=== PATIENT | male | born 1975 | race Hispanic/Latino ===

== ENCOUNTER 2017-06-18 21:49 | Emergency (ER) | payer MEDICAID ==
[2017-06-18 21:49] VITALS: BMI 21.5
[2017-06-18 21:59] VITALS: RESP 18
--- NOTE | 2017-06-18 22:35 | ED PDOC ---
Lower Extremity Pain/Injury Time Seen by Provider: 06/18/17 21:55 Chief Complaint (Nursing): Lower Extremity Problem/Injury Chief Complaint (Provider): Lower Extremity Problem/Injury History Per: Patient History/Exam Limitations: no limitations Onset/Duration Of Symptoms: Other (over several months) Current Symptoms Are (Timing): Still Present Additional Complaint(s): 41 y/o male presents to the ED complaining of bilateral leg swelling, worse on the right leg, going on for several months. Patient noticed redness on the right leg and has discomfort and pain. Reports that he has never seen a doctor for this. Denies fever, chills, vomiting, diarrhea or any further medical complaints. Past Medical History Reviewed: Historical Data, Nursing Documentation, Vital Signs Vital Signs: Last Vital Signs Temp 97.5 F L 06/18/17 21:56 Pulse 70 06/18/17 21:56 Resp 18 06/18/17 21:56 BP 150/90 06/18/17 21:56 Pulse Ox 100 06/18/17 21:56 - Medical History PMH: No Chronic Diseases - Surgical History Surgical History: No Surg Hx - Family History Family History: States: Unknown Family Hx - Social History Current smoker - smoking cessation education provided: Yes (Heavy Smoker > 10 Cigarettes Daily) Alcohol: None Drugs: Denies - Home Medications Home Medications: Ambulatory Orders Medication Instructions Recorded Doxycycline Hyclate 100 mg PO BID #20 cap 05/22/14 Levofloxacin [Levaquin] 500 mg PO DAILY #10 tab 05/22/14 Oxycodone HCl/Acetaminophen 1 tab PO Q6 PRN #16 tab 05/22/14 [Percocet 325 mg-5 mg] Cephalexin [Keflex] 500 mg PO QID #28 capsule 06/19/17 - Allergies Allergies/Adverse Reactions: Allergies Allergy/AdvReac Type Severity Reaction Status Date / Time No Known Allergies Allergy Verified 05/22/14 11:40 Review of Systems ROS Statement: Except As Marked, All Systems Reviewed And Found Negative (As per HPI, otherwise negative) Constitutional: Negative for: Fever, Chills Gastrointestinal: Negative for: Vomiting, Diarrhea Musculoskeletal: Positive for: Leg Pain (Bilateral leg swelling) Physical Exam - Reviewed Nursing Documentation Reviewed: Yes Vital Signs Reviewed: Yes - Physical Exam Appears: Positive for: Non-toxic, No Acute Distress Head Exam: Positive for: ATRAUMATIC, NORMAL INSPECTION, NORMOCEPHALIC Skin: Positive for: Normal Color, Warm, Dry Eye Exam: Positive for: EOMI, Normal appearance, PERRL ENT: Positive for: Normal ENT Inspection Neck: Positive for: Normal, Painless ROM, Supple Cardiovascular/Chest: Positive for: Regular Rate, Rhythm. Negative for: Murmur Respiratory: Positive for: Normal Breath Sounds. Negative for: Accessory Muscle Use, Respiratory Distress Pulses-Dorsalis Pedis (L): 2+ Pulses-Dorsalis Pedis (R): 2+ Gastrointestinal/Abdominal: Positive for: Normal Exam, Soft. Negative for: Tenderness Back: Positive for: Normal Inspection Extremity: Positive for: Swelling (Left leg: slightly swollen form midway down to tib-fib, no erythema noted; Right leg: swollen from midway to all the way down to the foot and slightly erythematous). Negative for: Other (Hematoma or open wound) Neurologic/Psych: Positive for: Alert, Oriented (x3). Negative for: Other ( Focal weakness) - Laboratory Results Result Diagrams: 06/18/17 22:26 06/18/17 22:26 - ECG O2 Sat by Pulse Oximetry: 100 (RA) Pulse Ox Interpretation: Normal Medical Decision Making Medical Decision Making: Time: 22:17 Initial Impression: Bilateral leg swelling, rule out clot and fracture Plan: CMP CBC w/ differential Urine C&S Ankle x-ray Foot x-ray Urinalysis Lower extremity US Reevaluation Time: 2338 EXAM: US Duplex Bilateral Lower Extremity Veins FINDINGS: Right deep veins: Unremarkable. No DVT in the right common femoral, femoral, proximal deep femoral or popliteal veins. The veins demonstrate normal color flow, are normally compressible, with normal phasic flow and/or augmentation response. Right superficial veins: Unremarkable. No thrombus in the visualized right great saphenous vein. Left deep veins: Unremarkable. No DVT in the left common femoral, femoral, proximal deep femoral or popliteal veins. The veins demonstrate normal color flow, are normally compressible, with normal phasic flow and/or augmentation response. Left superficial veins: Unremarkable. No thrombus in the visualized left great saphenous vein. Soft tissues: Enlarged bilateral inguinal lymph nodes. Largest on right 2.5 CM and largest on the left 3.6 CM. No popliteal cyst. IMPRESSION: 1. No acute right or left lower extremity venous thrombosis. 2. Enlarged bilateral inguinal lymph nodes. Largest on the right 2.5 CM. The largest on the left 3.6 CM. Correlate clinically. Time: 103 Patient's potassium is low. ordered K. Time: 112 Patient made aware of lymph nodes and needs follow-up as outpatient.(possible immune compromise) Given instructions and antibiotics for early cellulites on right leg. Patient provided copies of reports and instructions for follow-up at clinic. Scribe Attestation: Documented by Neelima Jackson and Dariusz Garcia acting as a scribes for Ilir De León MD. Scribe Attestation: All medical record entries made by the Scribe were at my direction and personally dictated by me. I have reviewed the chart and agree that the record accurately reflects my personal performance of the history, physical exam, medical decision making, and the department course for this patient. I have also personally directed, reviewed, and agree with the discharge instructions and disposition. Disposition - Clinical Impression Clinical Impression: Swelling of foot joint, Lymphadenopathy - Patient ED Disposition Is Patient to be Admitted: No Counseled Patient/Family Regarding: Studies Performed, Diagnosis, Need For Followup - Disposition Disposition: Routine/Home Disposition Time: 23:00 Condition: IMPROVED Additional Instructions: follow up with your primary doctor or in the clinic in 1-2 days and bring copy of the report for further workup return to the ED with any worsening or concerning symptoms Prescriptions: Cephalexin [Keflex] 500 mg PO QID #28 capsule Instructions: Foot Sprain (DC) Forms: [employer] (Sinhala)
[2017-06-18 22:36] LABS: BASO # 0.1 K/uL (0.0-0.2); BASO % 0.9 % (0.0-2.0); EOS # 0.1 K/uL (0.0-0.7); EOS % 1.7 % (0.0-4.0); HEMOGLOBIN 13.5 g/dL (12.0-18.0); LYMPH # 2.5 K/uL (1.0-4.3); LYMPH % 39.9 % (20.0-40.0); MEAN CELL VOLUME 85.5 fl (80.0-94.0); MEAN CORPUSCULAR HEMOGLOBIN 28.7 pg (27.0-31.0); MEAN CORPUSCULAR HGB CONC 33.5 g/dL (33.0-37.0); MEAN PLATELET VOLUME 8.1 fl (7.2-11.7); MONO # 0.5 K/uL (0.0-0.8); MONO % 8.8 % (0.0-10.0); NEUT % 48.7 % (50.0-75.0); NRBC % 0.2 % (0.0-0.0); RBC 4.71 Mil/uL (4.40-5.90); RED CELL DISTRIBUTION WIDTH 14.4 % (11.5-14.5); WHITE BLOOD COUNT 6.2 K/uL (4.8-10.8)
[2017-06-18 22:47] LABS: ALB/GLOB RATIO 1.1 (1.0-2.1); ALBUMIN 4.3 g/dL (3.5-5.0); ALT/SGPT 32 U/L (21-72); AST/SGOT 28 U/L (17-59); BLOOD UREA NITROGEN 17 mg/dl (9-20); CALCIUM 9.4 mg/dL (8.4-10.2); GFR AFRICAN-AMERICAN > 60; GFR NON-AFRICAN AMERICAN > 60
--- NOTE | 2017-06-18 23:39 | US ---
EXAM: US Duplex Bilateral Lower Extremity Veins CLINICAL HISTORY: 41 years old, male; Signs and symptoms; Swelling of limb; Lower extremity, bilateral; Additional info: Bilateral leg swelling TECHNIQUE: Real-time duplex ultrasound scan of the bilateral lower extremity veins integrating B-mode two-dimensional vascular structure, Doppler spectral analysis, color flow Doppler imaging and compression. COMPARISON: No relevant prior studies available. FINDINGS: Right deep veins: Unremarkable. No DVT in the right common femoral, femoral, proximal deep femoral or popliteal veins. The veins demonstrate normal color flow, are normally compressible, with normal phasic flow and/or augmentation response. Right superficial veins: Unremarkable. No thrombus in the visualized right great saphenous vein. Left deep veins: Unremarkable. No DVT in the left common femoral, femoral, proximal deep femoral or popliteal veins. The veins demonstrate normal color flow, are normally compressible, with normal phasic flow and/or augmentation response. Left superficial veins: Unremarkable. No thrombus in the visualized left great saphenous vein. Soft tissues: Enlarged bilateral inguinal lymph nodes. Largest on right 2.5 CM and largest on the left 3.6 CM. No popliteal cyst. IMPRESSION: 1. No acute right or left lower extremity venous thrombosis. 2. Enlarged bilateral inguinal lymph nodes. Largest on the right 2.5 CM. The largest on the left 3.6 CM. Correlate clinically.
[2017-06-19 00:59] LABS: SQUAMOUS EPITHIAL 1 /hpf (0-5); URINE BILIRUBIN NEGATIVE (NEGATIVE); URINE BLOOD NEGATIVE (NEGATIVE); URINE CLARITY SLIGHTY-CLOUDY (Clear); URINE COLOR YELLOW (YELLOW); URINE GLUCOSE (UA) NEG (Normal); URINE LEUKOCYTE ESTERASE NEG Leu/uL (Negative); URINE PROTEIN NEGATIVE (NEGATIVE); URINE UROBILINOGEN 0.2-1.0 mg/dL (0.2-1.0)
[2017-06-19] MEDS ORDERED: Potassium Chloride 20 mEq ER Tab PO ONE ×2 (01:00→02:38)
[2017-06-19 04:20] VITALS: BP 122/78; PULSE 82; TEMP 98
[2017-06-19 06:14] VITALS: O2SAT 100
--- NOTE | 2017-06-19 09:08 | RAD ---
PROCEDURE: Right Ankle Radiographs. HISTORY: swelling COMPARISON: None FINDINGS: BONES: No acute fracture. JOINTS: Ankle mortise maintained. Talar dome intact SOFT TISSUES: Prominent soft tissues. OTHER FINDINGS: None. IMPRESSION: No demonstrated fracture or dislocation.
--- NOTE | 2017-06-19 09:09 | RAD ---
PROCEDURE: Right Foot Radiographs. HISTORY: swelling COMPARISON: None. FINDINGS: BONES: No acute fracture. JOINTS: Unremarkable. SOFT TISSUES: Normal. OTHER FINDINGS: None. IMPRESSION: No demonstrated fracture or dislocation.
== END 2017-06-19 02:45 | disposition home or self-care (01) ==
LOC: H.ER 21:49
DX: R22.41 Localized swelling, mass and lump, right lower limb (principal); R59.9 Enlarged lymph nodes, unspecified; F17.210 Nicotine dependence, cigarettes, uncomplicated